=== PATIENT | male | born 1945 | race Caucasian/White ===

== ENCOUNTER 2016-11-26 10:53 | Emergency (ER) | payer MEDICARE ==
[~2016-11-26] VITALS: Ht 190.5 cm; Wt 157.9 kg
[2016-11-26 11:03] VITALS: BP 105/61; PULSE 89; RESP 16; O2SAT 95
[2016-11-26] MEDS ORDERED: ROSU5TAB PO (11:10)
[2016-11-26] MEDS ORDERED: METO25TA6 PO (11:10)
[2016-11-26] MEDS ORDERED: ALBU8.5H2 INHALATION (11:10)
[2016-11-26] MEDS ORDERED: METF500T4 PO (11:10)
[2016-11-26] MEDS ORDERED: SPIR25TA3 PO (11:10)
[2016-11-26] MEDS ORDERED: WARF6TAB PO (11:10)
--- NOTE | 2016-11-26 11:22 | ED.REPORT ---
HPI-Extremity Problem Lower Date of Service Nov 26, 2016 ED Provider: Dr. Antolin Thakkar MD Patient is a 70 year old male on Coumadin who presents to the ED complaining of a sore to the left leg that first appeared 1 month ago but became increasingly worse 2 days ago. Patient reportedly hit his leg on a fishing tackle box 1 month ago and noticed worsening swelling with discharge. He began to express concern because he had a similar infection previously that required IV antibiotics. Patient reports family history of CHF. He denies any recent fever, chills, nausea, vomiting, chest pain or SOB. Nursing Notes Stated Complaint: SORE ON LEFT LEG Chief Complaint: Extremity Trauma Nursing Notes Reviewed: Yes Allergies: Coded Allergies: No Known Allergies (Unverified , 11/26/16) Scheduled Albuterol HFA (Proair HFA) 8.5 Gm Hfa.aer.ad 2 PUFFS INHALATION Q4H Metformin (Metformin) 500 Mg Tablet 500 MG PO BID Metoprolol Tartrate (Metoprolol Tartrate) 25 Mg Tablet Unknown Dose PO BID Rosuvastatin Calcium (Crestor) 5 Mg Tablet Unknown Dose PO DAILY Spironolactone (Spironolactone) 25 Mg Tablet 25 MG PO DAILY Warfarin Sodium (Coumadin) 6 Mg Tablet 3-6 MG PO DAILY alternates everyother day with 11/26/2016 being 3mg General Time Seen by MD: 11:21 Chief Complaint Leg injury left Hx Obtained From: Patient Arrived By: Walk-in Onset Occurred: 2 days ago Symptom Duration: Since onset Caused by: Accidental Location: : Leg left Quality: Painful Severity: Current: Mild Severity: Maximum: Mild Associated with: Reports: Swelling, Denies: Chest pain, Fever Pertinent Negative: Pt denies other symptoms Recent Healthcare: No recent doctor visit, No recent hospitalization Review of Systems Constitutional: Denies: Chills, Fever Musculoskeletal: Reports: Extremity pain (LLE pain), Extremity swelling (LLE swelling) Skin: Reports Rash (Ulcer to LLE) Complete sys rev & neg: except as marked. Respiratory: Denies: Shortness of breath Cardiovascular: Denies: Chest pain GI: Denies: Nausea, Vomiting Physical Exam Initial Vital Signs Vital Signs (First) Date Time Temp Pulse Resp B/P Pulse Ox O2 Delivery O2 Flow Rate FiO2 11/26/16 11:03 36.8 89 16 105/61 95 Room Air Initial VS: Reviewed Head / Eyes: Atraumatic, Normocephalic, PERRL Neck: Supple, Non-tender, Full range of motion Upper Extremities: Vascular intact, Neuro intact, No swelling, No tenderness Neurologic: Alert, Oriented, Nonfocal Psychiatric: Mood/affect normal, Behavior normal, Normal thought content Lower Extremity / Pelvis / MS: Neurologic intact, Vascular intact LOWER EXTREMITIES: 1cm x 1cm area of erythema LLE Ankle / Foot: Atraumatic, Neurologic intact, Vascular intact General/Constitutional: Awake, Alert, No acute distress, Well appearing, Well developed Respiratory / Chest: Atraumatic, Breath sounds NL, Breath sounds = bilat, No respiratory distress Cardiovascular: Heart rate NL, Heart sounds NL, No gallop, No murmurs, No rubs , Cap refill not delayed Heart Rate / Rhythm: Positive: Irregular rhythm Lower Ext Edema: Positive: Bilateral 2+ Skin: Atraumatic, Color NL, Warm, Dry, Intact SKIN: 1cm x 1cm area of ulceration and erythema Scant weeping serous fluid draining from the area. No evidence of cellulitis No evidence of abscess Interpretation & Diagnostics Lab Results Interpretation Result Diagram: 11/26/16 1141 11/26/16 1141 Test 11/26/16 11:41 White Blood Count 5.2th/mm3 (3.8-10.1) Red Blood Count 5.06mil/mm3 (4.40-5.80) Hemoglobin 15.4g/dL (13.8-17.2) Hematocrit 45.4% (41.0-50.0) Mean Corpuscular Volume 89.7fL (81-100) Mean Corpuscular Hemoglobin 30.4pg (27.0-35.0) Mean Corpuscular Hemoglobin Concent 33.9% (32.0-37.0) Red Cell Distribution Width 13.9% (12.3-15.4) Platelet Count 168bil/L (150-400) Neutrophils (%) (Auto) 65.1% (40-74) Lymphocytes (%) (Auto) 22.3% (14-46) Monocytes (%) (Auto) 8.9% (4-12) Eosinophils (%) (Auto) 2.7% (0-5) Basophils (%) (Auto) 0.6% (0-3) Sodium Level 142mEq/L (134-144) Potassium Level 4.0mEq/L (3.5-5.2) Chloride Level 105mEq/L (97-108) Carbon Dioxide Level 23mmol/L (18-29) Blood Urea Nitrogen 24mg/dL (8-27) Creatinine 0.75mg/dL (0.76-1.27) Estimat Glomerular Filtration Rate 110mL/min (>59) Glucose Level 141mg/dL (60-99) Calcium Level 8.5mg/dL (8.5-10.1) Total Bilirubin 0.6mg/dL (0.0-1.2) Aspartate Amino Transf (AST/SGOT) 32U/L (0-50) Alanine Aminotransferase (ALT/SGPT) 33U/L (0-44) Alkaline Phosphatase 49U/L (25-160) Total Protein 6.3g/dL (6.4-8.4) Albumin 3.7g/dL (3.4-5.0) Hold Deleon Top Tube Received (Received) Re-Eval/Medical Decision Med Decision/Clinical Course Patient presents with a region of superficial ulceration to his left anterior elkins. It is very shallow and there is no evidence of surrounding cellulitis or abscess. It does not probe to bone. The patient does notably have pitting edema bilateral lower extremities and some weeping of serous/nonpurulent fluid. He is afebrile with stable vital signs. CBC unremarkable CMP unremarkable Overall presentation consistent with small superficial wound that is healing poorly, likely due to the extent of his lower extremity edema. No evidence of infection. No evidence of DVT. Lower extremity is neurovascularly intact. I feel that the patient is appropriate for discharge. He appears in ointment and nonadherent dressings placed. Pressure dressings applied. Patient advised to elevate lower extremity. Prior to discharge follow-up and return precautions were reviewed in detail with the patient who verbalized understanding and agreement with the plan. The patient was discharged in stable condition. Re-Evaluation/Progress : Time of Eval: 12:37 Patient Status: Condition improved Re-Evaluation/Progress Note: Patient is rechecked. He is informed of all of his results. Discussed intended treatment plan. All of the pateint's questions are addressed. He understands and agrees with the treatment plan. Discharge & Departure Impression: Primary Impression: Lower extremity edema Laterality: bilateral Qualified Code: R60.0 - Localized edema Additional Impression: Leg ulcer, left Non-pressure ulcer stage: unspecified non-pressure ulcer stage Qualified Code : L97.929 - Non-pressure chronic ulcer of unspecified part of left lower leg with unspecified severity Disposition: Home Discharge Condition All VS Reviewed: Yes Condition: Improved Patient Instructions: Leg Edema (ED) Additional Instructions: Thank you for seeking care at emergency room. Our primary goal today in the ED was to evaluate you for any life-threatening conditions. Your evaluation was reassuring. make sure to use compress socks and keep the area bandaged tightly to help the healing process. Try to elevate your legs above your heart to help relieve the swelling. You will be discharged with a prescription for mupirocin. Apply daily to the affected area. You should follow-up with your primary doctor in the next week. You should return to the ED immediately if you develop fevers, chills, increased swelling, redness, pustule drainage, worsening pain, weakness or any other concerning signs or symptoms. Referrals: [facility] Scribe Attestation Portions of this note were transcribed by Sean Lopes. I, Dr. Thakkar personally performed the history, physical exam and medical decision-making; I reviewed and confirmed the accuracy of the information in the transcribed note. Signed by: David Franco, 11/26/16 1251. Antolin Thakkar MD Nov 26, 2016 11:22 SEAN LOPES Nov 26, 2016 12:23
[2016-11-26 11:44] LABS: BASOPHILS % (AUTO) 0.6 % (0-3); EOSINOPHILS % (AUTO) 2.7 % (0-5); MONOCYTES % (AUTO) 8.9 % (4-12); Mean Corpuscular Hemoglobin 30.4 pg (27.0-35.0); Mean Corpuscular Volume 89.7 fL (81-100); NEUTROPHILS % (AUTO) 65.1 % (40-74); Platelet Count 168 bil/L (150-400)
[2016-11-26] MEDS ORDERED: Mupirocin 2% 22 Gm Ointment TOPICAL ONE (12:40)
[2016-11-26 13:05] VITALS: BP 126/69; PULSE 85; RESP 18; O2SAT 95
== END 2016-11-26 13:09 | disposition home or self-care (01) ==
LOC: SED 10:53
DX: L97.929 Non-pressure chronic ulcer of unspecified part of left lower leg with unspecified severity (principal); R60.0 Localized edema; W22.8XXA Striking against or struck by other objects, initial encounter; Y93.89 Activity, other specified; Y92.89 Other specified places as the place of occurrence of the external cause; Y99.8 Other external cause status; Z79.84 Long term (current) use of oral hypoglycemic drugs; Z79.01 Long term (current) use of anticoagulants